=== PATIENT | male | born 2000 | race Caucasian/White ===

== ENCOUNTER 2020-06-11 19:50 | Emergency (ER) | payer OTHER | END 2020-06-11 20:37 | disposition home or self-care (01) | LOC: EDH 19:50 | DX: S33.5XXA Sprain of ligaments of lumbar spine, initial encounter (principal); Z88.0 Allergy status to penicillin; Z88.1 Allergy status to other antibiotic agents; V49.49XA Driver injured in collision with other motor vehicles in traffic accident, initial encounter; Y93.89 Activity, other specified; Y92.89 Other specified places as the place of occurrence of the external cause; Y99.8 Other external cause status; J45.909 Unspecified asthma, uncomplicated | CPT/HCPCS: 99281 ==